=== PATIENT | female | born 1965 | race Caucasian/White ===

== ENCOUNTER → 2016-11-28 | Outpatient (CLI) | payer OTHER ==
--- NOTE | 2016-11-28 23:05 | MR ---
EXAMINATION TYPE: MR brain wo/w con DATE OF EXAM: 11/28/2016 COMPARISON: 09/11/2010 HISTORY: Headaches and sinus trouble TECHNIQUE: Multiplanar, multisequence images of the brain and brainstem is performed without and with IV contras t, utilizing 6.0 mL intravenous Gadavist . FINDINGS: Ventricles and sulci appear normal. There is no mass effect nor midline shift. There is no sign of intracranial hemorrhage. There is no evidence of cerebral edema. Brainstem is intact. Sella t urcica is normal. Corpus callosum is normal. I see no pathologic enhancement. IMPRESSION: Negative MR scan of the brain. No change compared to old exam.
== END | disposition home or self-care (01) ==
LOC: RADMRIMAIN 15:54
PROVIDERS: ATTEND Nurse Practitioner Family
DX: R51 Headache (principal)
CPT/HCPCS: 70553; A9581

== ENCOUNTER → 2017-04-14 | Outpatient (CLI) | payer OTHER ==
--- NOTE | 2017-04-14 19:46 | CT ---
EXAMINATION TYPE: CT brain jeri wo con DATE OF EXAM: 04/14/2017 COMPARISON: None. HISTORY: Neck pain. Headache. Fall. CT DLP: mGycm Automated exposure control for dose reduction was used. TECHNIQUE: CT scan of the head and cervical spine are performed without contrast. FINDINGS: Ventricles and sulci appear normal. There is no mass effect or midline shift. There is no sign of intracranial hemorrhage. The calvarium appears normal. The cervical vertebra have normal spacing and alignment. Posterior elements are intact. Facet joints are intact. Skull base is intact. There is no sign of a fracture. IMPRESSION: Normal CT scan of the brain. Normal CT scan of the cervical spine.
== END | disposition home or self-care (01) ==
LOC: RADCTMAIN 19:02
PROVIDERS: ATTEND Internal Medicine
DX: T14.90XA Injury, unspecified, initial encounter (principal)
CPT/HCPCS: 70450; 72125

== ENCOUNTER → 2017-05-09 | Outpatient (CLI) | payer OTHER ==
--- NOTE | 2017-05-12 10:44 | MM ---
Reason for exam: screening (asymptomatic). Last mammogram was performed 1 year and 2 months ago. History: Patient is postmenopausal. Family history of breast cancer in paternal grandmother. Physical Findings: A clinical breast exam by your physician is recommended on an annual basis and results should be correlated with mammographic findings. MG 3D Screening Mammo W/Cad Bilateral CC and MLO view(s) were taken. Prior study comparison: February 29, 2016, bilateral MG 3d screening mammo w/cad. January 11, 2015, bilateral MG 3d screening mammo w/cad. The breast tissue is heterogeneously dense. This may lower the sensitivity of mammography. No suspicious abnormality. No significant changes when compared with prior studies. ASSESSMENT: Negative, BI-RAD 1 RECOMMENDATION: Routine screening mammogram of both breasts in 1 year.
== END | disposition home or self-care (01) ==
LOC: RADMAMWWP 04-10 16:45
PROVIDERS: ATTEND Obstetrics & Gynecology
DX: Z12.31 Encounter for screening mammogram for malignant neoplasm of breast (principal)
CPT/HCPCS: 77063; 77067

== ENCOUNTER 2017-07-31 12:34 | Emergency (ER) | payer OTHER ==
[2017-07-31 14:23] VITALS: PULSE 65; RESP 18
--- NOTE | 2017-07-31 14:28 | US ---
EXAMINATION TYPE: US venous doppler duplex LE RT DATE OF EXAM: 07/31/2017 2:19 PM COMPARISON: US 04/03/2009 CLINICAL HISTORY: Pain right thigh. Right ankle/foot surgery in July SIDE PERFORMED: Right TECHNIQUE: The lower extremity deep venous system is examined utilizing real time linear array sonog russell with graded compression, doppler sonography and color-flow sonography. VESSELS IMAGED: External Iliac Vein (EIV) Common Femoral Vein Deep Femoral Vein Greater Saphenous Vein * Femoral Vein Popliteal Vein Small Saphenous Vein * Proximal Calf Veins (* superficial vessels) Right Leg: Negative for DVT Scanning was performed over the patient's right side in the location of the patient's pain. No discre te solid or cystic areas are evident. IMPRESSION: 1. Right lower extremity ultrasound negative for deep venous thrombosis. 2. Soft tissue evaluation of the patient's thigh in the region of the pain is unremarkable.
--- NOTE | 2017-07-31 14:41 | ED ---
Extremity Problem HPI - General Chief complaint: Extremity Problem,Nontraumatic Stated complaint: poss bloodclot rt leg Time Seen by Provider: 07/31/17 12:45 Source: patient, RN notes reviewed Mode of arrival: wheelchair Limitations: no limitations - History of Present Illness Initial comments: 51-year-old female presents emergency Department for right leg pain. Patient states that she had surgery on her right foot by Dr. Mejia and states that she recently developed this right thigh pain concern for DVT. Patient was advised to come the emergency room for evaluation. Patient has no rash, no redness, no swelling. She states his skin was very sensitive to the touch earlier today. Patient denies chest pain, shortness breath. - Related Data Home Medications Medication Instructions Recorded Confirmed Eletriptan [Relpax] 40 mg PO BID PRN 07/23/13 07/31/17 HYDROcodone/APAP 5-325MG [[place] 1 tab PO Q4HR PRN 07/31/17 07/31/17 5-325] Ibuprofen [Motrin] 800 mg PO TID PRN 07/31/17 07/31/17 Allergies Allergy/AdvReac Type Severity Reaction Status Date / Time latex Allergy Rash/Hives Verified 07/31/17 12:51 Sulfa (Sulfonamide Allergy Rash/Hives Verified 07/31/17 12:51 Antibiotics) Review of Systems ROS Statement: Those systems with pertinent positive or pertinent negative responses have been documented in the HPI. ROS Other: All systems not noted in ROS Statement are negative. Past Medical History Additional Past Medical History / Comment(s): migraine, History of Any Multi-Drug Resistant Organisms: None Reported Past Surgical History: Cholecystectomy Additional Past Surgical History / Comment(s): foot surgey Past Psychological History: No Psychological Hx Reported Smoking Status: Never smoker Past Alcohol Use History: None Reported Past Drug Use History: None Reported General Exam Limitations: no limitations General appearance: alert, in no apparent distress Head exam: Present: atraumatic, normocephalic, normal inspection Respiratory exam: Present: normal lung sounds bilaterally. Absent: respiratory distress, wheezes, rales, rhonchi, stridor Cardiovascular Exam: Present: regular rate, normal rhythm, normal heart sounds. Absent: systolic murmur, diastolic murmur, rubs, gallop, clicks Extremities exam: Present: other (Surgical dressing to the right foot, there is no Tenderness to the calf. No tenderness of the right thigh. Pulses are equal bilaterally there is no notable rash or erythema no swelling) Skin exam: Present: warm, dry Course Vital Signs 07/31/17 07/31/17 12:37 14:22 Temperature 98.4 F Pulse Rate 73 65 Respiratory 16 18 Rate Blood Pressure 151/73 115/74 O2 Sat by Pulse 99 98 Oximetry Medical Decision Making - Medical Decision Making Patient had ultrasound of her right leg which was negative for acute DVT. Patient complained of sensitivity to the skin and she was warned about possible early shingles presentation. She will be rechecked within 24 hours. Return for any worsening symptoms. Disposition Clinical Impression: Right leg pain Disposition: HOME SELF-CARE Condition: Stable Instructions: Leg Pain (ED) Additional Instructions: Please return to the Emergency Department if symptoms worsen or any other concerns. Is patient prescribed a controlled substance at d/c from ED?: No Referrals: Duong Webber MD [Primary Care Provider] - 1-2 days Time of Disposition: 14:41
[2017-07-31 14:55] VITALS: BP 138/75; TEMP 97.1
== END 2017-07-31 14:54 | disposition home or self-care (01) ==
LOC: EC 12:34
DX: M79.604 Pain in right leg (principal); Z88.2 Allergy status to sulfonamides; Z91.040 Latex allergy status
CPT/HCPCS: 99283

== ENCOUNTER → 2018-01-12 | Outpatient (CLI) | payer OTHER | END | disposition home or self-care (01) | LOC: LABWHC1 16:52 | PROVIDERS: ATTEND Psychiatry & Neurology Neurology | DX: Z51.81 Encounter for therapeutic drug level monitoring (principal); Z79.899 Other long term (current) drug therapy | CPT/HCPCS: 36415; 82565; 84520 ==

== ENCOUNTER → 2018-01-13 | Outpatient (CLI) | payer OTHER ==
--- NOTE | 2018-01-13 22:51 | MR ---
EXAMINATION TYPE: MR brain wo/w con DATE OF EXAM: 01/13/2018 COMPARISON: MRI brain November 28, 2016 HISTORY: Trigeminal neuralgia, prior abnormal MRI. TECHNIQUE: Multiplanar, multisequence images of the brain and brainstem is performed without and with IV contras t, utilizing 5.5 mL intravenous Gadavist . FINDINGS: Diffusion weighted images demonstrate no evidence of a recent infarct or other diffusion ab normality. There is no extra-axial fluid collection or significant white matter signal abnormality. The ventricular system and cisternal spaces are normal in size and appearance. The brain volume is age appropriate. Midline structures demonstrate normal morphology. The craniocervical junction appears within normal limits. Post contrast images demonstrate no abnormal enhancement. The dural venous sinuses appear pa tent. The visualized sinuses are clear and the globes are intact. IMPRESSION: Unremarkable study. No significant change from prior MRI.
== END | disposition home or self-care (01) ==
LOC: RADMRIMAIN 17:24
PROVIDERS: ATTEND Psychiatry & Neurology Neurology
DX: G50.0 Trigeminal neuralgia (principal)
CPT/HCPCS: 70553; A9585

== ENCOUNTER 2018-02-16 04:55 | Emergency (ER) | payer OTHER ==
[2018-02-16] MEDS ORDERED: KETOROLAC 30 MG/ML 1 ML VIAL IVP STA (05:48)
[2018-02-16] MEDS ORDERED: METOCLOPRAMIDE 5 MG/ML 2 ML VIAL IVP STA (05:48)
[2018-02-16] MEDS ORDERED: diphenhydrAMINE 50 MG/ML 1 ML VIAL IVP STA (05:48)
[2018-02-16] MEDS ORDERED: SODIUM CHLORIDE 0.9% 1,000 ML IV ONE (05:48)
--- NOTE | 2018-02-16 06:01 | ED ---
Headache HPI - General Chief Complaint: Headache Stated Complaint: Headache Time Seen by Provider: 02/16/18 05:00 Mode of arrival: ambulatory Limitations: no limitations - History of Present Illness Initial Comments: This patient is a 52-year-old woman with history of migraine headaches going back 6 years. She states that Friday morning she noted the onset of what seem like typical migraine. She states it's in the same location and some sensation. She indicates the left temporal area, states that it is a throbbing headache, now severe intensity. It does get worse with light exposure. She has not noted any relieving factors. She states that she tried her home medication without much improvement. She has also had some nausea vomiting. She denies any atypical symptoms associated with this one. MD Complaint: headache Onset/Timin -: days(s) Onset Description: gradual Location: left, temporal Severity: severe Quality: throbbing Consistency: constant Improves With: nothing Worsens With: none Context: occurred at rest Associated Symptoms: nausea, photophobia Treatments Prior to Arrival: prescription analgesic, migraine medication - Related Data Home Medications Medication Instructions Recorded Confirmed Eletriptan [Relpax] 40 mg PO BID PRN 07/23/13 07/31/17 HYDROcodone/APAP 5-325MG [[place] 1 tab PO Q4HR PRN 07/31/17 07/31/17 5-325] Ibuprofen [Motrin] 800 mg PO TID PRN 07/31/17 07/31/17 Allergies Allergy/AdvReac Type Severity Reaction Status Date / Time latex Allergy Rash/Hives Verified 07/31/17 12:51 Sulfa (Sulfonamide Allergy Rash/Hives Verified 07/31/17 12:51 Antibiotics) Review of Systems ROS Statement: Those systems with pertinent positive or pertinent negative responses have been documented in the HPI. ROS Other: All systems not noted in ROS Statement are negative. Constitutional: Denies: fever, chills, weakness Eyes: Denies: vision change Respiratory: Denies: cough, dyspnea Cardiovascular: Denies: chest pain, palpitations, syncope Gastrointestinal: Reports: nausea, vomiting. Denies: abdominal pain Musculoskeletal: Denies: back pain Skin: Denies: rash Neurological: Reports: headache. Denies: weakness, numbness, paresthesias, confusion Past Medical History Additional Past Medical History / Comment(s): migraine, History of Any Multi-Drug Resistant Organisms: None Reported Past Surgical History: Cholecystectomy Additional Past Surgical History / Comment(s): foot surgey Past Psychological History: No Psychological Hx Reported Smoking Status: Never smoker Past Alcohol Use History: None Reported Past Drug Use History: None Reported General Exam Limitations: no limitations General appearance: alert, in no apparent distress Head exam: Present: atraumatic, normocephalic Eye exam: Present: normal appearance, PERRL, EOMI, other (Unable to perform funduscopic exam secondary to photophobia). Absent: scleral icterus, conjunctival injection ENT exam: Present: normal oropharynx Neck exam: Present: normal inspection, full ROM Respiratory exam: Present: normal lung sounds bilaterally. Absent: respiratory distress, wheezes, rales, rhonchi, stridor Cardiovascular Exam: Present: regular rate, normal rhythm, normal heart sounds. Absent: systolic murmur, diastolic murmur, rubs, gallop GI/Abdominal exam: Present: soft. Absent: distended, tenderness, guarding, rebound, rigid, mass Extremities exam: Present: normal inspection, normal capillary refill. Absent: pedal edema, calf tenderness Back exam: Present: normal inspection. Absent: CVA tenderness (R), CVA tenderness (L) Neurological exam: Present: alert, oriented X3, CN II-XII intact. Absent: motor sensory deficit Skin exam: Present: warm, dry, intact, normal color. Absent: rash Course Vital Signs 02/16/18 02/16/18 04:56 05:59 Temperature 97.3 F L Pulse Rate 68 82 Respiratory 16 20 Rate Blood Pressure 137/83 156/97 O2 Sat by Pulse 99 98 Oximetry Disposition Clinical Impression: Headache Disposition: HOME SELF-CARE Condition: Good Instructions: Acute Headache (ED) Is patient prescribed a controlled substance at d/c from ED?: No Referrals: Duong Webber MD [Primary Care Provider] - 1-2 days Kolby Vale MD [STAFF PHYSICIAN] - 1-2 days
[2018-02-16] MEDS ORDERED: SUMAtriptan SUCCINATE 6 MG/0.5 ML VIAL SQ STA (07:38)
[2018-02-16 08:32] VITALS: BP 135/73; PULSE 78; RESP 18; TEMP 98.4
== END 2018-02-16 08:30 | disposition home or self-care (01) ==
LOC: EC 04:55
DX: G43.909 Migraine, unspecified, not intractable, without status migrainosus (principal); Z88.2 Allergy status to sulfonamides; Z91.040 Latex allergy status
CPT/HCPCS: 99283; 96374; 96375 ×2; 96361; 96372; J3030; J1200; J2765; J1885

== ENCOUNTER → 2018-05-19 | Outpatient (CLI) | payer OTHER ==
--- NOTE | 2018-05-19 10:17 | BD ---
EXAMINATION TYPE: Axial Bone Density DATE OF EXAM: 05/19/2018 COMPARISON: 2016 CLINICAL HISTORY: post menopausal female. Osteoporosis screening. Height: 5'1/2 Weight: 123 FRAX RISK QUESTIONS: Secondary Osteoporosis: 3. Menopause before 45: y RISK FACTORS HISTORY OF: Family History of Osteoporosis: y Postmenopausal woman: y MEDICATIONS: Additional Medications: blood pressure, migraine, Additional History: EXAM MEASUREMENTS: Bone mineral densitometry was performed using the Stellarray System. Bone mineral density as measured about the Lumbar spine is: ----- L1-L4(G/cm2): 0.985 T Score Values are as follows: ----- L2: -1.7 ----- L3: -1.7 ----- L4: -1.6 ----- L1-L4: -1.6 Bone mineral density has: Decreased -3.4% since study of: 02/29/2016 Bone mineral density about the R hip (g/cm2): 0.733 Bone mineral density about the L hip (g/cm2): 0.762 T Score values are as follows: -----R Neck: -2.2 -----L Neck: -2.0 -----R Total: -2.4 -----L Total: -2.2 Bone mineral density has: Decreased -8.3% since study of: 02/29/2016 IMPRESSION: Osteoporosis (T Score less than -2.5). Values approach osteoporosis. There is increased fracture risk and therapy is usually indicated based on age. Re-Screen 1-2 years. NOTE: T-SCORE=SD OF THE YOUNG ADULT MEAN.
--- NOTE | 2018-05-20 11:43 | MM ---
Reason for exam: screening (asymptomatic). Last mammogram was performed 1 year ago. History: Patient is postmenopausal. Family history of breast cancer in paternal grandmother. Physical Findings: A clinical breast exam by your physician is recommended on an annual basis and results should be correlated with mammographic findings. MG 3D Screening Mammo W/Cad Bilateral CC and MLO view(s) were taken. Prior study comparison: May 09, 2017, bilateral MG 3d screening mammo w/cad. February 29, 2016, bilateral MG 3d screening mammo w/cad. The breast tissue is heterogeneously dense. This may lower the sensitivity of mammography. There are benign appearing round calcifications in the right breast. There is no discrete abnormality. ASSESSMENT: Negative, BI-RAD 1 RECOMMENDATION: Routine screening mammogram of both breasts in 1 year.
== END | disposition home or self-care (01) ==
LOC: RADMAMWWP 08:01
PROVIDERS: ATTEND Obstetrics & Gynecology
DX: Z12.31 Encounter for screening mammogram for malignant neoplasm of breast (principal); M81.0 Age-related osteoporosis without current pathological fracture
CPT/HCPCS: 77063; 77067; 77080

== ENCOUNTER 2018-12-05 10:08 | Observation (INO) | payer OTHER ==
[2018-12-05] MEDS ORDERED: SODIUM CHLORIDE 0.9% 500 ML 500 ML IV STA (10:36)
[2018-12-05] MEDS ORDERED: ASPIRIN 81 MG PO STA (10:41)
[2018-12-05] MEDS ORDERED: NITROGLYCERIN OINT 1 INCH/GM PACKET TOPICAL STA (10:41)
--- NOTE | 2018-12-05 10:41 | ED ---
General Adult HPI - General Chief complaint: Arrhythmia/Palpitations Stated complaint: palpitations, burning arms Time Seen by Provider: 12/05/18 10:10 Source: patient, RN notes reviewed Mode of arrival: ambulatory Limitations: no limitations - History of Present Illness Initial comments: This is a 53-year-old female who presents emergency department with past medical history significant for migraine headaches and does have a family history of heart disease. Patient comes in today because she's been having chest pain starts in the center her chest and goes out to both of her arms. Patient states the symptoms lasted for approximate 5 minutes and they've been intermittent since Friday. Patient states she woke up this morning with him again and she decided come to the hospital be checked out. Patient denies any difficult breathing or shortness of breath. Denies any nausea. Patient denies any abdominal pain. Patient does not think anything she does increases the pain or decreases the pain. Patient states it happens much more in the morning and the evening than it does during the day. Patient denies any headache patient denies numbness weakness. Patient denies any lightheadedness or dizziness. Patient denies any recent fever chills or cough. Patient denies any swelling in the legs or calf tenderness. - Related Data Home Medications Medication Instructions Recorded Confirmed Eletriptan [Relpax] 40 mg PO BID PRN 07/23/13 12/05/18 Nadolol [Corgard] 40 mg PO DAILY 02/16/18 12/05/18 Amitriptyline HCl 20 mg PO HS 12/05/18 12/05/18 Calcium Carbonate [Calcium] 600 mg PO DAILY 12/05/18 12/05/18 Cyanocobalamin [Vitamin B-12] 500 mcg PO DAILY 12/05/18 12/05/18 Fremanezumab-Vfrm [Ajovy] 225 mg SQ Q30D 12/05/18 12/05/18 Vitamin E 100 unit PO DAILY 12/05/18 12/05/18 amLODIPine BESYLATE 5 mg PO DAILY 12/05/18 12/05/18 Allergies Allergy/AdvReac Type Severity Reaction Status Date / Time latex Allergy Rash/Hives Verified 12/05/18 10:19 Sulfa (Sulfonamide Allergy Rash/Hives Verified 12/05/18 10:19 Antibiotics) Review of Systems ROS Statement: Those systems with pertinent positive or pertinent negative responses have been documented in the HPI. ROS Other: All systems not noted in ROS Statement are negative. Past Medical History Additional Past Medical History / Comment(s): migraine, History of Any Multi-Drug Resistant Organisms: None Reported Past Surgical History: Cholecystectomy Additional Past Surgical History / Comment(s): foot surgey Past Psychological History: No Psychological Hx Reported Smoking Status: Never smoker Past Alcohol Use History: None Reported Past Drug Use History: None Reported General Exam - General Exam Comments Initial Comments: GENERAL: Patient is well-developed and well-nourished. Patient is nontoxic and well- hydrated and is in mild distress. ENT: Neck is soft and supple. No significant lymphadenopathy is noted. Oropharynx is clear. Moist mucous membranes. Neck has full range of motion without eliciting any pain. EYES: The sclera were anicteric and conjunctiva were pink and moist. Extraocular movements were intact and pupils were equal round and reactive to light. Eyelids were unremarkable. PULMONARY: Unlabored respirations. Good breath sounds bilaterally. No audible rales rhonchi or wheezing was noted. CARDIOVASCULAR: There is a regular rate and rhythm without any murmurs gallops or rubs. ABDOMEN: Soft and nontender with normal bowel sounds. No palpable organomegaly was noted. There is no palpable pulsatile mass. SKIN: Skin is clear with no lesions or rashes and otherwise unremarkable. NEUROLOGIC: Patient is alert and oriented x3. Cranial nerves II through XII are grossly intact. Motor and sensory are also intact. Normal speech, volume and content. Symmetrical smile. Cerebellar exam grossly intact. MUSCULOSKELETAL: Normal extremities with adequate strength and full range of motion. No lower extremity swelling or edema. No calf tenderness. LYMPHATICS: No significant lymphadenopathy is noted PSYCHIATRIC: Normal psychiatric evaluation. Limitations: no limitations Course Vital Signs 12/05/18 12/05/18 10:10 10:42 Temperature 97.5 F L Pulse Rate 69 Pulse Rate [ 69 Business Continuity Specialist ] Respiratory 18 Rate Blood Pressure 143/79 O2 Sat by Pulse 99 Oximetry Medical Decision Making - Medical Decision Making EKG shows a sinus rhythm with an occasional PAC at a rate of 67 bpm WA interval is 132 QRS is 78 QT interval 396 QTC is 418. Patient's EKG shows no ST segment elevation or depression lead V3 may be reversed with lead V2 - Lab Data Result diagrams: 12/05/18 10:35 12/05/18 10:35 Lab Results 12/05/18 12/05/18 12/05/18 Range/Units 10:35 10:35 10:35 WBC 4.0 (3.8-10.6) k/uL RBC 4.25 (3.80-5.40) m/uL Hgb 13.1 (11.4-16.0) gm/dL Hct 37.6 (34.0-46.0) % MCV 88.6 (80.0-100.0) fL MCH 30.8 (25.0-35.0) pg MCHC 34.8 (31.0-37.0) g/dL RDW 12.8 (11.5-15.5) % Plt Count 272 (150-450) k/uL Neutrophils % 53 % Lymphocytes % 33 % Monocytes % 8 % Eosinophils % 3 % Basophils % 1 % Neutrophils # 2.1 (1.3-7.7) k/uL Lymphocytes # 1.3 (1.0-4.8) k/uL Monocytes # 0.3 (0-1.0) k/uL Eosinophils # 0.1 (0-0.7) k/uL Basophils # 0.1 (0-0.2) k/uL PT 10.5 (9.0-12.0) sec INR 1.0 (<1.2) APTT 26.3 (22.0-30.0) sec Sodium 140 (137-145) mmol/L Potassium 4.0 (3.5-5.1) mmol/L Chloride 105 (98-107) mmol/L Carbon Dioxide 29 (22-30) mmol/L Anion Gap 6 mmol/L BUN 8 (7-17) mg/dL Creatinine 0.70 (0.52-1.04) mg/dL Est GFR (CKD-EPI)AfAm >90 (>60 ml/min/1.73 sqM) Est GFR (CKD-EPI)NonAf >90 (>60 ml/min/1.73 sqM) Glucose 110 H (74-99) mg/dL Calcium 9.7 (8.4-10.2) mg/dL Magnesium 1.8 (1.6-2.3) mg/dL Total Bilirubin 0.6 (0.2-1.3) mg/dL AST 33 (14-36) U/L ALT 33 (9-52) U/L Alkaline Phosphatase 94 (38-126) U/L Troponin I (0.000-0.034) ng/mL Total Protein 7.0 (6.3-8.2) g/dL Albumin 4.2 (3.5-5.0) g/dL TSH 1.180 (0.465-4.680) mIU/L Free T4 1.49 (0.78-2.19) ng/dL 12/05/18 Range/Units 10:35 WBC (3.8-10.6) k/uL RBC (3.80-5.40) m/uL Hgb (11.4-16.0) gm/dL Hct (34.0-46.0) % MCV (80.0-100.0) fL MCH (25.0-35.0) pg MCHC (31.0-37.0) g/dL RDW (11.5-15.5) % Plt Count (150-450) k/uL Neutrophils % % Lymphocytes % % Monocytes % % Eosinophils % % Basophils % % Neutrophils # (1.3-7.7) k/uL Lymphocytes # (1.0-4.8) k/uL Monocytes # (0-1.0) k/uL Eosinophils # (0-0.7) k/uL Basophils # (0-0.2) k/uL PT (9.0-12.0) sec INR (<1.2) APTT (22.0-30.0) sec Sodium (137-145) mmol/L Potassium (3.5-5.1) mmol/L Chloride (98-107) mmol/L Carbon Dioxide (22-30) mmol/L Anion Gap mmol/L BUN (7-17) mg/dL Creatinine (0.52-1.04) mg/dL Est GFR (CKD-EPI)AfAm (>60 ml/min/1.73 sqM) Est GFR (CKD-EPI)NonAf (>60 ml/min/1.73 sqM) Glucose (74-99) mg/dL Calcium (8.4-10.2) mg/dL Magnesium (1.6-2.3) mg/dL Total Bilirubin (0.2-1.3) mg/dL AST (14-36) U/L ALT (9-52) U/L Alkaline Phosphatase (38-126) U/L Troponin I <0.012 (0.000-0.034) ng/mL Total Protein (6.3-8.2) g/dL Albumin (3.5-5.0) g/dL TSH (0.465-4.680) mIU/L Free T4 (0.78-2.19) ng/dL Disposition Clinical Impression: Chest pain Disposition: ADMITTED IP TO THIS [facility] Referrals: Tab Wlaker DO [Primary Care Provider] - 1-2 days Time of Disposition: 12:32
[2018-12-05 10:59] LABS: Basophils # (A) 0.1 k/uL (0-0.2); Basophils % (A) 1 %; Eosinophils # (A) 0.1 k/uL (0-0.7); Eosinophils % (A) 3 %; HCT 37.6 % (34.0-46.0); HGB 13.1 gm/dL (11.4-16.0); Lymphocytes # (A) 1.3 k/uL (1.0-4.8); Lymphocytes % (A) 33 %; MCH 30.8 pg (25.0-35.0); MCHC 34.8 g/dL (31.0-37.0); MCV 88.6 fL (80.0-100.0); Monocytes # (A) 0.3 k/uL (0-1.0); Monocytes % (A) 8 %; Neutrophils # (A) 2.1 k/uL (1.3-7.7); Neutrophils % (A) 53 %; Platelet Count 272 k/uL (150-450); RBC 4.25 m/uL (3.80-5.40); RDW 12.8 % (11.5-15.5)
--- NOTE | 2018-12-05 11:00 | XR ---
EXAMINATION TYPE: XR chest 2V DATE OF EXAM ORDERED: 12/05/2018 HISTORY: dysrhythmia. REFERENCE: None. FINDINGS: The lungs are clear. Pleural spaces are clear. Heart size is normal. IMPRESSION: NORMAL CHEST.
[2018-12-05 11:04] LABS: Partial Thromboplastin Time 26.3 sec (22.0-30.0); Prothrombin Time 10.5 sec (9.0-12.0)
[2018-12-05 11:06] LABS: ALT 33 U/L (9-52); AST 33 U/L (14-36); African American GFR (CKD) >90 (>60 ml/min/1.73 sqM); Albumin 4.2 g/dL (3.5-5.0); Alkaline Phosphatase 94 U/L (38-126); Anion Gap 6 mmol/L; Blood Urea Nitrogen 8 mg/dL (7-17); Calcium 9.7 mg/dL (8.4-10.2); Carbon Dioxide 29 mmol/L (22-30); Chloride 105 mmol/L (98-107); Glucose 110 mg/dL (74-99); Magnesium 1.8 mg/dL (1.6-2.3); Sodium 140 mmol/L (137-145); Total Bilirubin 0.6 mg/dL (0.2-1.3)
[2018-12-05 11:20] LABS: T4, Free (Free Thyroxine) 1.49 ng/dL (0.78-2.19)
[2018-12-05] MEDS ORDERED: NITROGLYCERIN SL TABS 0.4 MG TAB SUBLINGUAL PRN (12:32)
[2018-12-05] MEDS ORDERED: SUMAtriptan SUCCINATE 50 MG TAB PO PRN (16:32)
[2018-12-05] MEDS ORDERED: guaiFENesin-DM 100-10MG/5ML 10 ML CUP PO PRN (16:34)
[2018-12-05] MEDS ORDERED: AMITRIPTYLINE HCL 10 MG TAB PO SCH (21:00)
[2018-12-06 00:53] LABS: Cholesterol 172 mg/dL (<200); HDL Cholesterol 76 mg/dL (40-60); LDL Cholesterol,Calculated 85 mg/dL (0-99); Triglycerides 53 mg/dL (<150)
--- NOTE | 2018-12-06 07:23 | P.CRDCN ---
History of Present Illness History of present illness: This is a pleasant 53-year-old female past medical history significant for palpitations and hypertension. She follows my office with Dr. Jo. We have been asked to see her in consultation secondary to chest discomfort. She complains of racing heart causing burning sensation that radiates around her chest into her back lasting a couple of minutes at a time. has had this in the past with the palpitations but doesn't usually have pain associated with it. Denies shortness of breath, dizziness, nausea, vomiting or diaphoresis. EKG reveals sinus mechanism heart rate of 67. Telemetry tracings unremarkable reveal consistent his mechanism with no tachybradycardia arrhythmias noted. Chest x-ray is negative for an acute cardiopulmonary process. Laboratory data reviewed, cardiac enzymes negative 3, LDL 85, TSH 1.18. Current daily cardiac medications include nadolol 60 mg daily and amlodipine 5 mg daily. At the time of my exam: CONSTITUTIONAL: Denies fever. Denies chills. EYES: Denies blurred vision. Denies vision changes. Denies eye pain. EARS, NOSE, MOUTH & THROAT: Denies headache. Denies sore throat. Denies ear pain. CARDIOVASCULAR: Denies chest pain. Denies shortness of breath. Denies orthopnea. Denies PND. Denies palpitations. RESPIRATORY: Denies cough. GASTROINTESTINAL: Denies abdominal pain. Denies diarrhea. Denies constipation. Denies nausea. Denies vomiting. MUSCULOSKELETAL: Denies myalgias. INTEGUMENTARY: Denies pruitis. Denies rash. NEUROLOGIC: Denies numbness. Denies tingling. Denies weakness. PSYCHIATRIC: Denies anxiety. Denies depression. ENDOCRINE: Denies fatigue. Denies weight change. Denies polydipsia. Denies polyurina. GENITOURINARY: Denies burning, hematuria or urgency with micturation. HEMATOLOGIC: Denies history of anemia. Denies bleeding. Blood pressure 104/62 heart rate 64 afebrile maintaining oxygen saturation on room air GENERAL: This is a 53-year-old female in no apparent distress at the time of my examination. HEENT: Head is atraumatic, normocephalic. Pupils are equal, round. Sclerae anicteric. Conjunctivae are clear. Mucous membranes of the mouth are moist. Neck is supple. There is no jugular venous distention. No carotid bruit is heard. LUNGS: Clear to auscultation no wheezes, rales or rhonchi. No chest wall tenderness is noted on palpation or with deep breathing. HEART: Regular rate and rhythm without murmurs, rubs or gallops. S1 and S2 heard. ABDOMEN: Soft, nontender. Bowel sounds are heard. No organomegaly noted. EXTREMITIES: No evidence of peripheral edema and no calf tenderness noted. VASCULAR: Radial and dorsalis pedis pulses palpated, no evidence of clubbing. NEUROLOGIC: Patient is awake, alert and oriented x3. ASSESSMENT Palpitations and chest pain, atypical for angina. Telemetry tracings unremarkable. An acute coronary event has been ruled out. Hypertension PLAN An acute coronary event has been ruled out. Increase activity and ambulation and assess for exertional chest discomfort. Symptoms are atypical for angina. The patient had a normal stress test in the office in the spring of this year. Stable for discharge from a cardiac perspective. Follow-up with Dr. Jo next week. Thank you kindly for this consultation. Nurse Practitioner note has been reviewed, I agree with a documented findings and plan of care. Patient was seen and examined. Past Medical History Additional Past Medical History / Comment(s): migraine, History of Any Multi-Drug Resistant Organisms: None Reported Past Surgical History: Cholecystectomy Additional Past Surgical History / Comment(s): foot surgery Past Psychological History: No Psychological Hx Reported Smoking Status: Never smoker Past Alcohol Use History: None Reported Past Drug Use History: None Reported - Past Family History Mother Family Medical History: Cancer Additional Family Medical History / Comment(s): Lung Cancer Brother(s) Family Medical History: Coronary Artery Disease (CAD) Additional Family Medical History / Comment(s): with Stent Medications and Allergies Home Medications Medication Instructions Recorded Confirmed Type Eletriptan [Relpax] 40 mg PO BID PRN 07/23/13 12/05/18 History Nadolol [Corgard] 40 mg PO DAILY 02/16/18 12/05/18 History Amitriptyline HCl 20 mg PO HS 12/05/18 12/05/18 History Calcium Carbonate [Calcium] 600 mg PO DAILY 12/05/18 12/05/18 History Cyanocobalamin [Vitamin B-12] 500 mcg PO DAILY 12/05/18 12/05/18 History Fremanezumab-Vfrm [Ajovy] 225 mg SQ Q30D 12/05/18 12/05/18 History Vitamin E 100 unit PO DAILY 12/05/18 12/05/18 History amLODIPine BESYLATE 5 mg PO DAILY 12/05/18 12/05/18 History Allergies Allergy/AdvReac Type Severity Reaction Status Date / Time latex Allergy Rash/Hives Verified 12/05/18 10:19 Sulfa (Sulfonamide Allergy Rash/Hives Verified 12/05/18 10:19 Antibiotics) Physical Exam Vitals: Vital Signs Temp Pulse Pulse Pulse Resp BP BP 12/06/18 04:00 97.6 F 60 18 104/62 12/05/18 23:12 98 F 67 18 98/58 12/05/18 19:49 64 12/05/18 18:58 97.8 F 64 18 111/71 12/05/18 16:00 97.9 F 65 16 107/70 12/05/18 12:51 97.8 F 61 16 126/83 12/05/18 12:44 65 18 119/78 12/05/18 10:42 69 12/05/18 10:10 97.5 F L 69 18 143/79 Pulse Ox 12/06/18 04:00 97 12/05/18 23:12 98 12/05/18 19:49 12/05/18 18:58 98 12/05/18 16:00 97 12/05/18 12:51 100 12/05/18 12:44 100 12/05/18 10:42 12/05/18 10:10 99 Intake and Output 12/05/18 12/05/18 12/06/18 14:59 22:59 06:59 Other: Voiding Method Toilet Toilet # Voids 1 1 Weight 54.885 kg Results 12/05/18 10:35 12/05/18 10:35 Cardiac Enzymes 12/05/18 12/05/18 12/05/18 Range/Units 10:35 10:35 16:33 AST 33 (14-36) U/L Troponin I <0.012 <0.012 (0.000-0.034) ng/mL 12/05/18 Range/Units 22:32 AST (14-36) U/L Troponin I <0.012 (0.000-0.034) ng/mL Coagulation 12/05/18 Range/Units 10:35 PT 10.5 (9.0-12.0) sec APTT 26.3 (22.0-30.0) sec Lipids 12/05/18 Range/Units 10:35 Triglycerides 53 (<150) mg/dL Cholesterol 172 (<200) mg/dL HDL Cholesterol 76 H (40-60) mg/dL CBC 12/05/18 Range/Units 10:35 WBC 4.0 (3.8-10.6) k/uL RBC 4.25 (3.80-5.40) m/uL Hgb 13.1 (11.4-16.0) gm/dL Hct 37.6 (34.0-46.0) % Plt Count 272 (150-450) k/uL Comprehensive Metabolic Panel 12/05/18 Range/Units 10:35 Sodium 140 (137-145) mmol/L Potassium 4.0 (3.5-5.1) mmol/L Chloride 105 (98-107) mmol/L Carbon Dioxide 29 (22-30) mmol/L BUN 8 (7-17) mg/dL Creatinine 0.70 (0.52-1.04) mg/dL Glucose 110 H (74-99) mg/dL Calcium 9.7 (8.4-10.2) mg/dL AST 33 (14-36) U/L ALT 33 (9-52) U/L Alkaline Phosphatase 94 (38-126) U/L Total Protein 7.0 (6.3-8.2) g/dL Albumin 4.2 (3.5-5.0) g/dL Current Medications Generic Name Dose Route Start Last Admin Trade Name Freq PRN Reason Stop Dose Admin Amitriptyline HCl 20 mg 12/05/18 21:00 12/05/18 20:39 Elavil PO 20 mg HS HERMINIA Administration Amlodipine Besylate 5 mg 12/06/18 09:00 Norvasc PO DAILY [facility] Aspirin 325 mg 12/06/18 09:00 Aspirin PO DAILY [facility] Cyanocobalamin 500 mcg 12/06/18 09:00 Vitamin B-12 PO DAILY [facility] Guaifenesin/Dextromethorphan 10 ml 12/05/18 16:34 Robitussin Dm PO Q6H PRN Cough Nadolol 40 mg 12/06/18 09:00 Corgard PO DAILY HERMINIA Nitroglycerin 0.4 mg 12/05/18 12:32 Nitrostat SUBLINGUAL Q5M PRN Chest Pain Sumatriptan Succinate 100 mg 12/05/18 16:32 Imitrex PO BID PRN Migraine Headache Vitamin E 400 unit 12/06/18 09:00 Vitamin E PO DAILY HERMINIA Intake and Output 12/05/18 12/05/18 12/06/18 14:59 22:59 06:59 Other: Voiding Method Toilet Toilet # Voids 1 1 Weight 54.885 kg Patient Weight 12/06/18 06:59 Weight 54.885 kg 12/05/18 10:35 12/05/18 10:35
[2018-12-06 08:15] VITALS: BP 102/63; PULSE 69; RESP 16; TEMP 98.3
[2018-12-06] MEDS ORDERED: CYANOCOBALAMIN 500 MCG TAB PO SCH (09:00)
[2018-12-06] MEDS ORDERED: ASPIRIN 325 MG TAB PO SCH (09:00)
[2018-12-06] MEDS ORDERED: NADOLOL 20 MG TAB PO SCH (09:00)
[2018-12-06] MEDS ORDERED: VITAMIN E (DL,TOCOPHERYL ACET) 400 UNIT CAP PO SCH (09:00)
[2018-12-06] MEDS ORDERED: amLODIPine 5 MG TAB PO SCH (09:00)
--- NOTE | 2018-12-06 21:19 | P.HPIM ---
History of Present Illness H&P Date: 12/06/18 Chief Complaint: Chest pain History of presenting complaint: This is a very pleasant 53-year-old patient of Dr. Aaron Walker. Was acting rather good health. He is rather healthy. On Friday of this week while watching television she noticed some pain around the right scapula. Feels like a sharp stabbing pain. Took some Motrin. Subsequent to that next day she noticed some burning sensation in the chest with a racing feeling around the heart. The symptoms tend to go to bed worse. All the symptoms were happening at rest. Does not dizziness no lightheadedness. No fever no chills. No shortness of breath. Patient has been using a new injection called trino la for migraine prophylaxis. She also sometime uses CBD oriented. She is also's under some white stress because of 4 mother was undergoing a medical treatment. Normally denies any heartburn. She is here with her . Review of systems: GEN.: None EYES: None HEENT: None NECK: None RESPIRATORY: None CARDIOVASCULAR: As above GASTROINTESTINAL: None GENITOURINARY: None MUSCULOSKELETAL: As above LYMPHATICS: None HEMATOLOGICAL: None PSYCHIATRY: None NEUROLOGICAL: None Past medical history to include: Migraine Social history: Does not smoke or drink alcohol. . Does use CBD oil. Physical examination: VITAL SIGNS: 97.5, 69, 18, 143/79, 99% room air GENERAL: 22.9, sitting up comfortable. EYES: Pupils equal. Conjunctiva normal. HEENT: External appearance of nose and ears normal, oral cavity grossly normal. NECK: JVD not raised; masses not palpable. HEART: First and second heart sounds are normal; no edema. LUNGS: Respiratory rate normal; clear to auscultation. ABDOMEN: Soft, nontender, liver spleen not palpable, no masses palpable. PSYCH: Alert and oriented x3; mood and affect normal. NEUROLOGICAL: Cranial nerves grossly intact; no facial asymmetry, power and sensation grossly intact. LYMPHATICS: No lymph nodes palpable in the axilla and neck INVESTIGATIONS, reviewed in the clinical context: White count 14 globin 13.1 platelets 272 potassium 4 creatinine 0.70 Troponin 3 negative TSH 1.183 free T4 1.49 Assessment: -Atypical chest wall pain. Possibly muscular pain. Rule out a cardiac cause. -Migraines Plan: Cardiology was consulted. Per them notes patient did have a stress test in the spring of this year. Past Medical History Additional Past Medical History / Comment(s): migraine, History of Any Multi-Drug Resistant Organisms: None Reported Past Surgical History: Cholecystectomy Additional Past Surgical History / Comment(s): foot surgery Past Psychological History: No Psychological Hx Reported Smoking Status: Never smoker Past Alcohol Use History: None Reported Past Drug Use History: None Reported - Past Family History Mother Family Medical History: Cancer Additional Family Medical History / Comment(s): Lung Cancer Brother(s) Family Medical History: Coronary Artery Disease (CAD) Additional Family Medical History / Comment(s): with Stent Medications and Allergies Home Medications Medication Instructions Recorded Confirmed Type Eletriptan [Relpax] 40 mg PO BID PRN 07/23/13 12/05/18 History Nadolol [Corgard] 40 mg PO DAILY 02/16/18 12/05/18 History Amitriptyline HCl 20 mg PO HS 12/05/18 12/05/18 History Calcium Carbonate [Calcium] 600 mg PO DAILY 12/05/18 12/05/18 History Cyanocobalamin [Vitamin B-12] 500 mcg PO DAILY 12/05/18 12/05/18 History Fremanezumab-Vfrm [Ajovy] 225 mg SQ Q30D 12/05/18 12/05/18 History Vitamin E 100 unit PO DAILY 12/05/18 12/05/18 History amLODIPine BESYLATE 5 mg PO DAILY 12/05/18 12/05/18 History Allergies Allergy/AdvReac Type Severity Reaction Status Date / Time latex Allergy Rash/Hives Verified 12/05/18 10:19 Sulfa (Sulfonamide Allergy Rash/Hives Verified 12/05/18 10:19 Antibiotics) Physical Exam Vitals: Vital Signs Temp Pulse Pulse Pulse Resp BP BP 12/06/18 08:00 98.3 F 69 16 102/63 12/06/18 07:49 12/06/18 04:00 97.6 F 60 18 104/62 12/05/18 23:12 98 F 67 18 98/58 12/05/18 19:49 64 12/05/18 18:58 97.8 F 64 18 111/71 12/05/18 16:00 97.9 F 65 16 107/70 12/05/18 12:51 97.8 F 61 16 126/83 12/05/18 12:44 65 18 119/78 12/05/18 10:42 69 Pulse Ox 12/06/18 08:00 98 12/06/18 07:49 96 12/06/18 04:00 97 12/05/18 23:12 98 12/05/18 19:49 12/05/18 18:58 98 12/05/18 16:00 97 12/05/18 12:51 100 12/05/18 12:44 100 12/05/18 10:42 Intake and Output 12/05/18 12/06/18 12/06/18 22:59 06:59 14:59 Other: Voiding Method Toilet Toilet Toilet # Voids 1 1 Results CBC & Chem 7: 12/05/18 10:35 12/05/18 10:35 Labs: Abnormal Lab Results - Last 24 Hours (Table) 12/05/18 12/05/18 Range/Units 10:35 10:35 Glucose 110 H (74-99) mg/dL HDL Cholesterol 76 H (40-60) mg/dL Thrombosis Risk Factor Assmnt - Choose All That Apply Any of the Below Risk Factors Present?: Yes Each Factor Represents 1 point: Age 41-60 years Thrombosis Risk Factor Assessment Total Risk Factor Score: 1 Thrombosis Risk Factor Assessment Level: Low Risk
--- NOTE | 2018-12-06 21:22 | P.DS ---
Providers Date of admission: 12/05/18 12:33 Expected date of discharge: 12/06/18 Attending physician: Darwin Baker Consults: 12/05/18 12:33 Consult Physician Urgent Consulting Provider: [facility] Consult Reason/Comments: Chest pain Do you want consulting provider notified?: Yes, Notify in am Primary care physician: Tab Walker [place] Hospital Course: Chief Complaint: Chest pain Hospital course: This is a very pleasant 53-year-old patient of Dr. Aaron Walker. Was acting rather good health. He is rather healthy. On Friday of this week while watching television she noticed some pain around the right scapula. Feels like a sharp stabbing pain. Took some Motrin. Subsequent to that next day she noticed some burning sensation in the chest with a racing feeling around the heart. The symptoms tend to go to bed worse. All the symptoms were happening at rest. Does not dizziness no lightheadedness. No fever no chills. No shor tness of breath. Patient has been using a new injection called ajovy, monthly for migraine prophylaxis. She also sometime uses CBD oriented. She is also's under some white stress because of 4 mother was undergoing a medical treatment. Normally denies any heartburn. She is here with her . Seen by cardiology. It is felt to be muscular pain. Patient did have a stress test that was negative in June of this year. Consultation: Dr. DRE Mathews from cardiology Physical examination: VITAL SIGNS: 97.5, 69, 18, 143/79, 99% room air GENERAL: Sitting up comfortable EYES: Pupils equal. Conjunctiva normal. HEENT: External appearance of nose and ears normal, oral cavity grossly normal. NECK: JVD not raised; masses not palpable. HEART: First and second heart sounds are normal; no edema. LUNGS: Respiratory rate normal; clear to auscultation. ABDOMEN: Soft, nontender, liver spleen not palpable, no masses palpable. PSYCH: Alert and oriented x3; mood and affect normal. NEUROLOGICAL: Cranial nerves grossly intact; no facial asymmetry, power and sensation grossly intact. LYMPHATICS: No lymph nodes palpable in the axilla and neck INVESTIGATIONS, reviewed in the clinical context: White count 14 globin 13.1 platelets 272 potassium 4 creatinine 0.70 Troponin 3 negative TSH 1.183 free T4 1.49 Discharge diagnosis: -Atypical chest wall pain. Possibly muscular pain. -Migraines Disposition: Home Patient Condition at Discharge: Stable Plan - Discharge Summary Discharge Rx Participant: No New Discharge Prescriptions: Continue Eletriptan [Relpax] 40 mg PO BID PRN PRN Reason: Migraine Headache Nadolol [Corgard] 40 mg PO DAILY Vitamin E 100 unit PO DAILY Fremanezumab-Vfrm [Ajovy] 225 mg SQ Q30D Cyanocobalamin [Vitamin B-12] 500 mcg PO DAILY Calcium Carbonate [Calcium] 600 mg PO DAILY amLODIPine BESYLATE 5 mg PO DAILY Amitriptyline HCl 20 mg PO HS Discharge Medication List Eletriptan [Relpax] 40 mg PO BID PRN 07/23/13 [History] Nadolol [Corgard] 40 mg PO DAILY 02/16/18 [History] Amitriptyline HCl 20 mg PO HS 12/05/18 [History] Calcium Carbonate [Calcium] 600 mg PO DAILY 12/05/18 [History] Cyanocobalamin [Vitamin B-12] 500 mcg PO DAILY 12/05/18 [History] Fremanezumab-Vfrm [Ajovy] 225 mg SQ Q30D 12/05/18 [History] Vitamin E 100 unit PO DAILY 12/05/18 [History] amLODIPine BESYLATE 5 mg PO DAILY 12/05/18 [History] Follow up Appointment(s)/Referral(s): Tab Walker DO [Primary Care Provider] - 1-2 days Discharge Disposition: HOME SELF-CARE
== END 2018-12-06 11:35 | disposition home or self-care (01) ==
LOC: EC 10:08 → 1SOBS 12:33
PROVIDERS: ADMIT Hospitalist; ATTEND Hospitalist
DX: R07.89 Other chest pain (principal); I10 Essential (primary) hypertension; R00.2 Palpitations; G43.909 Migraine, unspecified, not intractable, without status migrainosus; Z79.899 Other long term (current) drug therapy; Z88.2 Allergy status to sulfonamides; Z91.040 Latex allergy status; Z90.49 Acquired absence of other specified parts of digestive tract; Z80.1 Family history of malignant neoplasm of trachea, bronchus and lung; Z82.49 Family history of ischemic heart disease and other diseases of the circulatory system
CPT/HCPCS: 96361 ×3; 96360; 99285; 36415; 94760; 93005; 84439; 80061; 80053; 83735; 84443; 84484; 85025; 85610; 85730; 71046; G0378 ×2

== ENCOUNTER → 2019-09-14 | Outpatient (CLI) | payer OTHER ==
--- NOTE | 2019-09-15 14:50 | MM ---
Reason for exam: screening (asymptomatic). Last mammogram was performed 1 year and 4 months ago. History: Patient is postmenopausal. Family history of breast cancer in paternal grandmother. Physical Findings: A clinical breast exam by your physician is recommended on an annual basis and results should be correlated with mammographic findings. MG Screening Mammo w CAD Bilateral CC and MLO view(s) were taken. Prior study comparison: May 19, 2018, bilateral MG 3d screening mammo w/cad. May 09, 2017, bilateral MG 3d screening mammo w/cad. The breast tissue is heterogeneously dense. This may lower the sensitivity of mammography. No significant changes when compared with prior studies. ASSESSMENT: Benign, BI-RAD 2 RECOMMENDATION: Routine screening mammogram of both breasts in 1 year.
== END | disposition home or self-care (01) ==
LOC: RADMAMWWP 15:26
PROVIDERS: ATTEND Obstetrics & Gynecology
DX: Z12.31 Encounter for screening mammogram for malignant neoplasm of breast (principal)
CPT/HCPCS: 77067

== ENCOUNTER → 2020-02-08 | Outpatient (CLI) | payer OTHER | END | disposition home or self-care (01) | LOC: LABWHC1 16:40 | PROVIDERS: ATTEND Family Medicine | DX: R05 Cough (principal); Z20.828 Contact with and (suspected) exposure to other viral communicable diseases | CPT/HCPCS: U0003; C9803 ==

== ENCOUNTER → 2021-03-02 | Outpatient (CLI) | payer OTHER ==
--- NOTE | 2021-04-09 13:12 | EM ---
EVENT MONITOR DATE OF SERVICE: March 02, 2021. REFERRING: Dr. Cristal Walker INDICATIONS: Cardiac arrhythmia. The patient was monitored for 30 days. The baseline rhythm appeared to be sinus mechanism. The patient did have multiple episodes of sinus bradycardia with the resting heart rate in the 50s. No sustained tachyarrhythmia noted. No atrial fibrillation noted. No significant sinus pause or sinus arrest seen. The patient did have multiple episodes of premature atrial and ventricular events. CONCLUSION: 1. This is a 30 day event monitor. 2. Sinus rhythm as a baseline mechanism. 3. No evidence of any sustained tachy or bradyarrhythmia noted. 4. No significant sinus pause or sinus arrest. MMODL / IJN: [id number] /
== END | disposition home or self-care (01) ==
LOC: RADECHMAIN 07:46
PROVIDERS: ATTEND Family Medicine
DX: I49.9 Cardiac arrhythmia, unspecified (principal); R00.2 Palpitations
CPT/HCPCS: 93270

== ENCOUNTER → 2021-05-03 | Outpatient (CLI) | payer OTHER ==
--- NOTE | 2021-05-04 13:36 | MM ---
Reason for exam: screening (asymptomatic). Last mammogram was performed 1 year and 8 months ago. History: Patient is postmenopausal. Family history of breast cancer in paternal grandmother. Physical Findings: A clinical breast exam by your physician is recommended on an annual basis and results should be correlated with mammographic findings. MG 3D Screening Mammo W/Cad Bilateral CC and MLO view(s) were taken. Prior study comparison: September 14, 2019, bilateral MG screening mammo w CAD. May 19, 2018, bilateral MG 3d screening mammo w/cad. The breast tissue is heterogeneously dense. This may lower the sensitivity of mammography. Stable benign calcifications. No significant changes when compared with prior studies. ASSESSMENT: Benign, BI-RAD 2 RECOMMENDATION: Routine screening mammogram of both breasts in 1 year.
== END | disposition home or self-care (01) ==
LOC: RADMAMWWP 15:06
PROVIDERS: ATTEND Obstetrics & Gynecology
DX: Z12.31 Encounter for screening mammogram for malignant neoplasm of breast (principal); Z78.0 Asymptomatic menopausal state; Z80.3 Family history of malignant neoplasm of breast
CPT/HCPCS: 77063; 77067

== ENCOUNTER → 2021-07-03 | Outpatient (CLI) | payer OTHER ==
--- NOTE | 2021-07-04 22:46 | BD ---
EXAMINATION TYPE: Axial Bone Density DATE OF EXAM: 07/03/2021 COMPARISON: NONE CLINICAL HISTORY: 55 year old Female. ICD-10 CODE: M81.0 AGE RELATED OSTEOPOROSIS W/O CURRENT PATHOL OGIC Height: 61 Weight: 132.4 FRAX RISK QUESTIONS: Alcohol (3 or more units per day): no Family History (Parent hip fracture): no Glucocorticoids (More than 3mos): no (Ex: prednisone, prednisolone, methylprednisolone, dexamethasone, and hydrocortisone). History of Fracture in Adulthood: no Secondary Osteoporosis: 1. Type 1 Diabetes: no 2. Hyperthyroidism: no 3. Menopause before 45: yes 4. Malnutrition: no 5. Chronic liver disease: no Rheumatoid Arthritis: no Current Tobacco Use: no RISK FACTORS HISTORY OF: Surgery to Spine/Hip(right/left)/Wrist (right/left): no Family History of Osteoporosis: yes Active: yes Diet low in dairy products/other sources of calcium: no Postmenopausal woman: yes Lost more than 2 inches in height since high school: no MEDICATIONS: calcium Additional History: EXAM MEASUREMENTS: Bone mineral densitometry was performed using the amaysim System. Bone mineral density as measured about the Lumbar spine is: ----- L1-L4(G/cm2): 0.936 T Score Values are as follows: ----- L1: -2.2 ----- L2: -2.4 ----- L3: -2.0 ----- L4: -1.8 ----- L1-L4: -2.0 Bone mineral density has: decreased -5.0 % since study of: 05.19.2018 Bone mineral density about the R hip (g/cm2): 0.788 Bone mineral density about the L hip (g/cm2): 0.772 T Score values are as follows: -----R Neck: -1.8 -----L Neck: -1.9 -----R Total: -2.2 -----L Total: -1.9 Bone mineral density has: increased 3.7 % since study of: 05.19.2018 FRAX%s: The graph provided illustrates a 8.7% chance for a major osteoporotic fx and a 1.0% chance fo r the hips probability for fx in 10 years time. IMPRESSION: Osteopenia (T Score between -2.5 and -1). There is slightly increased risk of fracture and the patient may be considered for treatment. Re-Screen 2-5 years. NOTE: T-SCORE=SD OF THE YOUNG ADULT MEAN.
== END | disposition home or self-care (01) ==
LOC: RADBDWWP 15:33
PROVIDERS: ATTEND Obstetrics & Gynecology
DX: M85.89 Other specified disorders of bone density and structure, multiple sites (principal)
CPT/HCPCS: 77080

== ENCOUNTER → 2022-09-19 | Outpatient (CLI) | payer OTHER ==
[2022-09-19 20:17] LABS: HCT 36.7 % (37.2-46.3); HGB 12.2 d/dL (12.0-15.0); MCH 30.6 pg (27.0-32.0); MCHC 33.2 d/dL (32.0-37.0); Mean Platelet Volume 9.7 FL (9.5-12.2); NRBC Per 100 WBC 0 X 10*3/uL (0.00-0.01); Platelet Count 232 X 10*3/uL (140-440); RBC 3.99 X 10*6/uL (4.10-5.20); RDW 13.1 % (11.5-14.5); WBC 5.02 X 10*3/uL (4.50-10.00)
== END | disposition home or self-care (01) ==
LOC: LABWHC1 13:46
PROVIDERS: ATTEND Obstetrics & Gynecology
DX: D64.9 Anemia, unspecified (principal)
CPT/HCPCS: 36415; 85027

== ENCOUNTER → 2022-11-05 | Outpatient (CLI) | payer OTHER ==
--- NOTE | 2022-11-06 08:42 | MM ---
Reason for Exam: Screening (asymptomatic). Last mammogram was performed 1 year(s) and 6 month(s) ago. Patient History: Menarche at age 10. First Full-Term at age 24. Postmenopausal. Paternal grandmother had breast cancer. Risk Values: [place] 5 year model risk: 1.5%. NCI Lifetime model risk: 8.3%. Prior Study Comparison: 05/19/2018 Bilateral Screening Mammogram, [facility]. 09/14/2019 Bilateral Screening Mammogram, [facility]. 05/03/2021 Bilateral Screening Mammogram, [facility]. Tissue Density: The breast tissue is heterogeneously dense. This may lower the sensitivity of mammography. Findings: Analyzed By CAD. There is no suspicious group of microcalcifications or new suspicious mass in either breast. Benign calcifications within both breasts. Overall Assessment: Benign, BI-RAD 2 Management: Screening Mammogram of both breasts in 1 year. A clinical breast exam by your physician is recommended on an annual basis and results should be correlated with mammographic findings. Note on [place] scores and lifetime risk: 1. A [place] score greater than 3% is considered moderate risk. If this is the case, consider specialist referral to assess eligibility for a risk reducing agent. If overall lifetime risk for the development of breast cancer is 20% or higher, the patient may qualify for future screening with alternating mammogram and breast MRI. Electronically signed and approved by: Gerardo Cabral D.O.
== END | disposition home or self-care (01) ==
LOC: RADMAMWWP 09:02
PROVIDERS: ATTEND Obstetrics & Gynecology
DX: Z12.31 Encounter for screening mammogram for malignant neoplasm of breast (principal); Z78.0 Asymptomatic menopausal state; Z80.3 Family history of malignant neoplasm of breast
CPT/HCPCS: 77063; 77067

== ENCOUNTER → 2023-12-25 | Outpatient (CLI) | payer OTHER ==
--- NOTE | 2023-12-29 11:50 | MM ---
Reason for Exam: Screening (asymptomatic). Last mammogram was performed 1 year(s) and 1 month(s) ago. Patient History: Menarche at age 10. First Full-Term at age 24. Postmenopausal. Paternal grandmother had breast cancer. Risk Values: [place] 5 year model risk: 1.6%. NCI Lifetime model risk: 8.1%. Prior Study Comparison: 09/14/2019 Bilateral Screening Mammogram, [facility]. 05/03/2021 Bilateral Screening Mammogram, [facility]. 11/05/2022 Bilateral MG 3D screening mammo w/cad, [facility]. Tissue Density: The breasts are heterogeneously dense, which may obscure small masses. Findings: Analyzed By CAD. Right breast: There is no suspicious group of microcalcifications or new suspicious mass. Left breast: There is no suspicious group of microcalcifications or new suspicious mass. Overall Assessment: Negative, BI-RAD 1 Management: Screening Mammogram of both breasts in [address] [facility] will attempt to contact patient to return for supplemental views and ultrasound if indicated. Patient should continue monthly self-breast exams. A clinical breast exam by your physician is recommended on an annual basis. This exam should not preclude additional follow-up of suspicious palpable abnormalities. Note on [place] scores and lifetime risk: 1. A [place] score greater than 3% is considered moderate risk. If this is the case, consider specialist referral to assess eligibility for a risk reducing agent. 2. If overall lifetime risk for the development of breast cancer is 20% or higher, the patient may qualify for future screening with alternating mammogram and breast MRI. [facility], , 12/29/2023 11:47 AM. Electronically signed and approved by: Alvarado Koo DO
== END | disposition home or self-care (01) ==
LOC: RADMAMWWP 14:42
PROVIDERS: ATTEND Family Medicine
CPT/HCPCS: 77063; 77067

== ENCOUNTER → 2024-04-05 | Outpatient (CLI) | payer OTHER ==
--- NOTE | 2024-04-05 15:39 | BD ---
EXAMINATION TYPE: Axial Bone Density DATE OF EXAM: 04/05/2024 CLINICAL HISTORY: 58 years old Female. ICD-10 CODE: Z78.0 ASYMPTOMATIC MENOPAUSAL STATE , Additional History: Height: 60 Weight: 138.2 FRAX RISK QUESTIONS: Alcohol (3 or more units per day): no Family History (Parent hip fracture): no Glucocorticoids (More than 3mos): no (Ex: prednisone, prednisolone, methylprednisolone, dexamethasone, and hydrocortisone). History of Fracture in Adulthood: no Secondary Osteoporosis: 1. Type 1 Diabetes: no 2. Hyperthyroidism: no 3. Menopause before 45: yes 4. Malnutrition: no 5. Chronic liver disease: no Rheumatoid Arthritis: no Current Tobacco Use: no RISK FACTORS HISTORY OF: Hip Fracture (Right/Left): no Spine Fracture: no History of Wrist Fracture: no Surgery to Spine/Hip(right/left)/Wrist (right/left): no MEDICATIONS: Thyroid Medications: no Osteoporosis Medications:no EXAM MEASUREMENTS: Bone mineral densitometry was performed using the [employer]. Bone mineral density as measured about the Lumbar spine is: ----- L1-L4(G/cm2): 0.916 T Score Values are as follows: ----- L1: -2.5 ----- L2: -2.7 ----- L3: -1.6 ----- L4: -2.2 ----- L1-L4: -2.2 Z Score Values are as follows: ----- L1: -1.2 ----- L2: -1.4 ----- L3: -0.3 ----- L4: -0.9 ----- L1-L4: -0.9 Bone mineral density has: decreased -2.1 % since study of: 07/03/2021 Bone mineral density about the R hip (g/cm2): 0.770 Bone mineral density about the L hip (g/cm2): 0.776 T Score values are as follows: -----R Neck: -1.6 -----L Neck: -1.8 -----R Total: -1.9 -----L Total: -1.8 Z Score values are as follows: -----R Neck: -0.3 -----L Neck: -0.4 -----R Total: -0.9 -----L Total: -0.8 Bone mineral density has: increased 3.25 % since study of: 07/03/2021 FRAX%s: The graph provided illustrates a 8.9% chance for a major osteoporotic fx and a 0.9% chance fo r the hips probability for fx in 10 years time. IMPRESSION: Osteopenia (T Score between -2.5 and -1) remains present. There is slightly increased risk of fracture and the patient may be considered for treatment. Re-Screen 2-5 years. NOTE: T-SCORE=SD OF THE YOUNG ADULT MEAN. [facility], , 04/05/2024 3:37 PM
== END | disposition home or self-care (01) ==
LOC: RADBDWWP 15:05
PROVIDERS: ATTEND Family Medicine
DX: M85.89 Other specified disorders of bone density and structure, multiple sites (principal); M81.0 Age-related osteoporosis without current pathological fracture; Z78.0 Asymptomatic menopausal state
CPT/HCPCS: 77080

== ENCOUNTER → 2024-07-02 | Outpatient (CLI) | payer OTHER ==
--- NOTE | 2024-07-02 19:50 | MR ---
EXAMINATION TYPE: MR cervical spine wo con DATE OF EXAM: 07/02/2024 6:13 PM COMPARISON: 04/29/2024. CLINICAL INDICATION: Female, 58 years old with history of M47.22 SPONDYLOSIS W RADICULOPATHY; PHH, Ne ck pain with numbness in hands x3 months TECHNIQUE: Multi planar, multi sequence imaging was performed utilizing: T1-weighted, T2-weighted, an d turbo inversion recovery imaging of the cervical spine. IV Contrast: mL (None, if empty) FINDINGS: Alignment: The cervical vertebral bodies have preserved heights. Alignment is within normal limits [facility] patient positioning. Bones: Osteophytes and disc space narrowing most pronounced at the C5-C6 vertebral levels. Cord: The spinal cord is unremarkable with regards to their signal intensity and morphology. Discs: Intervertebral disc signal is maintained. C2-C3: No significant disc pathology. The spinal canal is patent. No neural foraminal stenosis. C3-C4: No significant disc pathology. The spinal canal is patent. No neural foraminal stenosis. C4-C5: No significant disc pathology. The spinal canal is patent. No neural foraminal stenosis. C5-C6: No significant disc pathology. The spinal canal is patent. No neural foraminal stenosis. C6-C7: No significant disc pathology. The spinal canal is patent. No neural foraminal stenosis. C7-T1: No significant disc pathology. The spinal canal is patent. No neural foraminal stenosis. Other: None. IMPRESSION: 1. No evidence for disc herniation or significant spinal canal stenosis. 2. Minimal disc degeneration with associated osteoarthritic changes. No evidence for significant neur al foraminal stenosis or spinal calcinosis. [facility], , 07/02/2024 7:48 PM
== END | disposition home or self-care (01) ==
LOC: RADMRIMAIN 18:15
PROVIDERS: ATTEND Orthopaedic Surgery
DX: M50.10 Cervical disc disorder with radiculopathy, unspecified cervical region (principal); M47.22 Other spondylosis with radiculopathy, cervical region
CPT/HCPCS: 72141